=== PATIENT | female | born 1980 | race Caucasian/White ===

== ENCOUNTER 2016-05-02 13:56 | Emergency (ER) | payer OTHER ==
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
[~2016-05-02 13:56] MED LIST: AMOXICILLIN500 M1 PO; FLEXERIL10 MG PO; IBUPROFEN PO; IMODIUM2 MG PO; MACROBID100 M1 PO; MOTRIN400 M1 PO; NAPROSYN-EC500 M1 PO; NO MEDICATIONS; PHENERGAN25 M1 PO; PHENERGAN25 MG PO; ROBAXIN 750750 M1 PO; ZOFRAN ODT4 MG PO
[2016-05-02 14:14] LABS: URINE SOURCE CLEAN CATCH
[2016-05-02 14:17] LABS: URINE APPEARANCE CLEAR; URINE BILIRUBIN NEG (NEG); URINE BLOOD NEG (NEG); URINE COLOR YELLOW; URINE GLUCOSE NEG (NORM); URINE KETONE NEG (NEG); URINE LEUKOCYTE ESTERASE NEG (NEG); URINE NITRATE NEG (NEG); URINE PH 7.5 (5-8); URINE PROTEIN NEG (NEG); URINE SPECIFIC GRAVITY 1.015 (1.003-1.035); URINE UROBILINOGEN 0.2 MG/DL (NORM)
[2016-05-02 14:21] LABS: MICRO INDICATED? NO
== END 2016-05-02 15:51 | disposition home or self-care (01) ==
LOC: SED 13:56
PROVIDERS: Emergency Medicine
DX: S02.2XXA Fracture of nasal bones, initial encounter for closed fracture (principal); F17.210 Nicotine dependence, cigarettes, uncomplicated; Y08.89XA Assault by other specified means, initial encounter; Y92.410 Unspecified street and highway as the place of occurrence of the external cause
CPT/HCPCS: 70450; 70486; 81003; 84703; 99284

== ENCOUNTER 2016-09-11 22:09 | Emergency (ER) | payer OTHER ==
--- NOTE | ~2016-09-11 | CR2 ---
[facility] A Service of [facility] RADIOLOGY TEXT RESULTS PATIENT: NINO LOMBARDO LOCATION: SED : 78 UNIT #: [id number] AGE: [address]: Lucy Bernal APRN SEX: F ORDER DR: [id number] [address] [address] [id number] E MR#: [id number] Acc #: [id number] NAME: NINO LOMBARDO : 1980 SEX: F STUDY DATE/TIME: 09/12/2016 0:03 UNIT: SED ROOM: STUDY DESCRIPTION: CR Abdomen Acute Series Attending Physician: Lucy Bernal A.P.R.N. Ordering Physician: Lucy Bernal A.P.R.N. MEDICAL IMAGING REPORT This report is preliminary unless electronic signature is present. EXAM Acute abdomen series, 09/12/16 INDICATION Abdominal pain, nausea and vomiting for 3 days. COMPARISON STUDIES None. FINDINGS A PA view of the chest and a flat and upright view of the abdomen were obtained. The heart size and vascularity are normal. The lungs are clear. The bowel gas pattern is normal. The bones are unremarkable. IMPRESSION Normal acute abdomen series. Dictated by... Jon Hernández M.D. THIS IS AN ELECTRONICALLY VERIFIED REPORT Jon Hernández M.D. at 09/12/2016 8:21 PM SHABBIR/ella [facility] A Service of [facility] RADIOLOGY TEXT RESULTS PATIENT: NINO LOMBARDO LOCATION: SED : 78 UNIT #: [id number] AGE: [address]: Lucy Bernal APRN SEX: F ORDER DR: TD: 09/12/2016 14:51 JOB #: [id number] MEDICAL IMAGING REPORT Page 1 of 1
[2016-09-11 22:54] LABS: URINE SOURCE CLEAN CATCH
[2016-09-11 22:57] LABS: URINE APPEARANCE CLEAR; URINE BILIRUBIN NEG (NEG); URINE BLOOD TRACE-LYSED (NEG); URINE COLOR YELLOW; URINE GLUCOSE NEG (NORM); URINE KETONE NEG (NEG); URINE LEUKOCYTE ESTERASE NEG (NEG); URINE NITRATE NEG (NEG); URINE PROTEIN NEG (NEG); URINE SPECIFIC GRAVITY 1.025 (1.003-1.035); URINE UROBILINOGEN 0.2 MG/DL (NORM)
[2016-09-11 23:07] LABS: MICRO INDICATED? YES
[2016-09-11 23:08] LABS: CULTURE INDICATED? NO; URINE BACTERIA NEG (NEG); URINE HYALINE CAST 0-2 /[HPF]; URINE MUCUS PRESENT; URINE SQUAMOUS EPITHELIAL CELL OCCAS /[HPF]; URINE WBC 0-2 /[HPF] (0-5)
[2016-09-11 23:13] LABS: BASOPHIL% 0.1 % (0-2.5); EOSINOPHIL% 0.1 % (0.0-7.0); HEMATOCRIT 40.8 % (35.0-45.0); HEMOGLOBIN 13.7 gm/dL (12.0-16.0); LYMPHOCYTE# 1.3 X10e3 (1.0-3.5); MEAN CELL VOLUME 87.3 FL (83-96); MEAN CORPUSCULAR HEMOGLOBIN 29.3 PG (28-34); MEAN CORPUSCULAR HGB CONC 33.6 g/dL (30-36); MEAN PLATELET VOLUME 8.8 FL (6.5-11.5); MONOCYTE# 0.7 X10e3 (0-1.0); MONOCYTE% 5.2 % (3.0-12.0); NEUTROPHIL# 12.1 X10e3 (1.5-7.1); NEUTROPHIL% 85.6 % (40-75); PLATELET COUNT 254 X10e3 (140-420); RED BLOOD COUNT 4.67 X10e (3.90-5.30); RED CELL DISTRIBUTION WIDTH 13.7 % (11.0-15.5); WHITE BLOOD COUNT 14.2 X10e3 (4.0-10.5)
[2016-09-11 23:14] LABS: DIFF IND NO
[2016-09-11 23:32] LABS: ALBUMIN SERUM 4.4 g/dL (3.5-5.0); BILIRUBIN,TOTAL 0.5 mg/dL (0.2-2.0); BUN/CREATININE RATIO 17.5; CALCIUM SERUM 9.5 mg/dL (8.4-10.2); CREATININE SERUM 0.8 mg/dL (0.6-1.4); GLOM FILT RATE Estimated 93.6 mL/min (>60); POTASSIUM 3.6 mmol/L (3.5-5.1); PROTEIN TOTAL SERUM 7.7 g/dL (6.0-8.3)
== END 2016-09-12 01:29 | disposition home or self-care (01) ==
LOC: SED 22:09
PROVIDERS: Nurse Practitioner Family
DX: E86.0 Dehydration (principal)
CPT/HCPCS: 36415; 74022; 80053; 81003; 83690; 84703; 85025; 86677; 96361; 96374; 96375; 99284; C9113; J2405; J2550